=== PATIENT | male | born 1995 | race Two or more races ===

== ENCOUNTER 2017-05-08 11:33 | Inpatient (IN) | payer OTHER, SELFPAY ==
[~2017-05-08 11:33] MED LIST: Glycopyrrolate 0.2 MG/ML 5 ML SYRINGE ONE; Lidocaine 1% PF 5 ML VIAL ONE; Propofol 200 MG/20 ML VIAL ONE; Succinylcholine Chloride 20 MG/ML 10 ml SYRINGE FS ONE
--- NOTE | 2017-05-08 12:59 | RAD ---
RIGHT MIDDLE FINGER THREE VIEWS: HISTORY: Injury, laceration to the right middle finger. FINDINGS/IMPRESSION: There is a fracture involving the tuft of the distal phalanx of the right middle finger. No radiopaq ue foreign body is seen. POS: C
[2017-05-08] MEDS ORDERED: Ketorolac Tromethamine 30 MG/ML VIAL ONE (15:52)
[2017-05-08] MEDS ORDERED: Adacel (T-DAP) 0.5 ML VIAL ONE (15:52)
[2017-05-08] MEDS ORDERED: Gentamicin Sulfate 80 MG in Premix Bag 1 BAG IVPB ONE (16:00)
[2017-05-08] MEDS ORDERED: CEFAZOLIN 1 GM, Syringe 2.5 ML in Sterile Water 7.5 ML SLOW IVP SCH (16:30)
[2017-05-08] MEDS ORDERED: Penicillin G Potassium 3 MILL.UNITS in Sodium Chloride 0.9% 100 ML IVPB SCH (16:45)
[2017-05-08] MEDS ORDERED: Fentanyl 100 MCG/2 ML VIAL ONE (19:49)
[2017-05-08] MEDS ORDERED: Midazolam HCl 2 mg/2 ml Vial ONE (19:49)
[2017-05-08] MEDS ORDERED: Bupivacaine PF 0.5% 30 ML VIAL ONE (19:50)
[2017-05-08] MEDS ORDERED: Betamet Acet/Betamet Na Ph 30 MG/5 ML VIAL ONE (19:50)
[2017-05-08] MEDS ORDERED: Bacitracin Zinc Ointment 30 gm TUBE ONE (19:50)
[2017-05-08] MEDS ORDERED: Sodium Chloride 0.9% 10 ML ONE (21:03)
[2017-05-08] MEDS ORDERED: diphenhydrAMINE 25 MG CAP PO PRN (22:06)
[2017-05-08] MEDS ORDERED: Acetaminophen 325 MG TAB PO PRN (22:06)
[2017-05-08] MEDS ORDERED: Ondansetron ODT 4 MG TAB PO PRN (22:06)
[2017-05-08] MEDS ORDERED: HYDROcodone/Acetaminophen 7.5/325 mg Tablet PO PRN (22:06)
[2017-05-08] MEDS ORDERED: traMADol HCl 50 MG TAB PO PRN (22:06)
[2017-05-08] MEDS ORDERED: Methocarbamol 500 MG TAB PO PRN (22:06)
[2017-05-08] MEDS ORDERED: Ondansetron HCl/PF 4 MG/2 ML Vial IVP PRN (22:07)
[2017-05-08] MEDS ORDERED: Promethazine HCl 25 MG/ML VIAL SLOW IVP PRN (22:07)
[2017-05-08] MEDS ORDERED: Promethazine HCl 25 MG/ML VIAL IM PRN (22:07)
--- NOTE | 2017-05-08 22:51 | RAD ---
RIGHT LONG DIGIT RADIOGRAPHS TWO VIEWS: History: ORIF FINDINGS: Comparison made with study performed earlier same date. Images demonstrate pinning of previously desc ribed distal phalangeal fracture. IMPRESSION: As above. POS: CARA
[2017-05-08 23:39] VITALS: BMI 29.9
[2017-05-09] MEDS: Ketorolac Tromethamine 30 MG/ML VIAL IVP SCH ×4 (00:18→16:44)
[2017-05-09] MEDS: Clindamycin/D5W 900 MG in Premix Bag 1 BAG IVPB SCH ×4 (00:18→16:44)
--- NOTE | 2017-05-09 06:59 | OP ---
DATE OF PROCEDURE: 05/08/2017 PREOPERATIVE DIAGNOSES: 1. Grade I open fracture distal phalanx, sustained along a conveyor belt at [facility] [employer]. 2. Nail bed laceration, 1 cm. 3. Distal phalanx laceration, 1 cm. 4. Grade I open fracture distal phalanx. POSTOPERATIVE DIAGNOSES: 1. Grade I open fracture, distal phalanx, sustained a conveyor belt at [facility]. 2. Nail bed laceration, 1 cm. 3. Distal phalanx laceration, 1 cm. 4. Grade I open fracture distal phalanx. FINDINGS: Mild amount of contamination grossly seen, but wound formally debrided including bone. PROCEDURES PERFORMED: 1. Debridement of bone associated with open fracture, right distal phalanx, long finger. 2. Right long finger wound debridement. 3. Right long finger 1 cm wound closure. 4. Nail bed repair. 5. Open reduction internal fixation, distal phalanx, right long finger . 6. supervision 1 hour. TOURNIQUET TIME: 25 minutes. ESTIMATED BLOOD LOSS: 25 mL FINDINGS: Comminuted fracture, distal phalanx of the right long finger. INDICATION: Injury at work on [facility] conveyor belt to the hand. DESCRIPTION OF PROCEDURE: After successful general LMA technique, the limb was prepped and draped. A timeout was done appropriately. The patient was given 2 mL 0.5% metacarpophalangeal joint level bl ock. Next, the patient had the wound undergo timeout completed, a timeout was done, we then prepared to pe rform the procedure. The patient had the open wound retracted, we used the curet, Kaw blade, and Adson's to debride the wound. Then, we irrigated the wound with 2 liters of normal saline, bulb syringe with antibiotics i nside. Once this was done, we then performed the formal debridement of excisional technique. The patient then had the nail bed debrided, the wound was debrided, closed the wound on the radial ed ge with a 5-0 nylon simple pattern. We then used a 6-0 chromic to repair the nail bed without compli cation. This was nearly anatomic. The fracture then underwent K-wire fixation with one 3.5 wire bec ause this was a very small fragment. This contained entire reduction. We then released the tourniqu et, we reviewed the nail bed repair with 6-0 chromic was then excellent, and we controlled hemostasis . We then placed them in an antibiotic gauze, bacitracin, Adaptic under finger tube gauze with a spl int palmar aspect protecting this phalanx fracture.
[2017-05-09] MEDS ORDERED: FLU VACC QS2017-18 36 mo. & older 0.5 ML SYRINGE IM ONE (09:00)
[2017-05-09] MEDS ORDERED: Famotidine/PF 20 mg/2ml Vial SLOW IVP SCH (09:00)
[2017-05-09 19:38] VITALS: BP 147/69; TEMP 98
--- NOTE | 2017-05-10 10:25 | DIS ---
DATE OF ADMISSION: 05/08/2017 DATE OF DISCHARGE: 05/09/2017 ADMISSION DIAGNOSES: 1. Grade I open fracture of right distal phalanx sustained at work, at [employer]. 2. Nail bed laceration, small 1 cm. 3. Distal phalanx that is very small 1 cm. 4. Grade I open fracture distal phalanx. DISCHARGE DIAGNOSES: 1. Grade I open fracture of right distal phalanx sustained at work, at [employer]. 2. Nail bed laceration, small 1 cm. 3. Distal phalanx that is very small 1 cm. 4. Grade I open fracture distal phalanx. HOSPITAL COURSE: Patient was admitted and because of his open fracture in a contaminated environment , would need immediate open debridement of bone and material associated with open fracture, distal ph alanx, open debridement of his wound, closure of the 1 cm wound, nail bed repair and magnification an d internal fixation of the fracture. He tolerated the procedure well. No fever, chills, and within 30 hours of completion of the procedure, after receiving IV antibiotics during this entire time, we p repared for discharge. DISCHARGE DIET: Regular. DISCHARGE INSTRUCTIONS: He will not be allowed to work at this time until he follows up with us with at least 10 days from discharge. He was counseled on this fact. DISCHARGE MEDICATIONS: 1. Bactrim-DS total of 20 tablets. 2. Toradol 10 mg 1 p.o. t.i.d. total of 15. 3. [place] 7.5/325 one every 8 hours as needed. FOLLOWUP: He will follow up in our clinic in 7 days for a dressing change.
== END 2017-05-09 19:45 | disposition home or self-care (01) | DRG 514 ==
LOC: ERS 11:33 → SDC 19:19 → T4-B 22:40
PROVIDERS: ADMIT Orthopaedic Surgery Hand Surgery; ATTEND Orthopaedic Surgery Hand Surgery
PROC: 0PST04Z Reposition Right Finger Phalanx with Internal Fixation Device, Open Approach (ICD-10-PCS; principal; 2017-05-08)
DX: S62.632B Displaced fracture of distal phalanx of right middle finger, initial encounter for open fracture (principal); W31.82XA Contact with other commercial machinery, initial encounter
CPT/HCPCS: 76000; 90471; 90715; 96365; 96367; 96375; A4216; J0690; J0696; J0702; J1580; J1885; J2001; J2250; J2540; J2704; J3010; J3490; J7050; S0020; S0028